=== PATIENT | female | born 1985 | race African-American/Black ===

== ENCOUNTER 2020-03-23 08:01 | Outpatient (CLI) | payer BC, SELFPAY ==
--- NOTE | ~2020-03-23 | US_ITS ---
EXAMINATION: US OB <= 14 weeks fetus DATE: 03/23/2020 08:30 INDICATION: First trimester dating TECHNIQUE: Real-time pelvic transabdominal and transvaginal ultrasound was performed. COMPARISON: None. FINDINGS: The uterus measures 10.8 x 7.7 x 6.6 cm. There is an intrauterine gestational sac. A yolk sac is identified. heart motion is identified measuring 178 beats per minute (bpm) by M-mode Do ppler. The crown rump length measures 4.1 cm , which correlates with an estimated gestational a ge of 11 weeks and 0 day(s) (+/-) 7 day(s). The ovaries are not visualized however no adnexal abnormality is seen. There is no free fluid in the pelvis. IMPRESSION: 1. Live intrauterine with an estimated gestational age of 11 weeks and 0 day(s) (+/-) 7 day (s) and an estimated delivery date of 10/12/2020. Reviewed, dictated and finalized at location A. EKEEPING/LAUNDRY IMPRESSION: 1. Live intrauterine with an estimated gestational age of 11 weeks an d 0 day(s) (+/-) 7 day(s) and an estimated delivery date of 10/12/2020.
== END 2020-03-23 08:02 | disposition home or self-care (01) ==
LOC: ANHIMG 08:05
PROVIDERS: Visit Provider Obstetrics & Gynecology
DX: Z34.91 Encounter for supervision of normal pregnancy, unspecified, first trimester (principal); Z3A.11 11 weeks gestation of pregnancy
CPT/HCPCS: 76801

== ENCOUNTER 2020-04-18 13:28 | Outpatient (CLI) | payer BC, SELFPAY ==
--- NOTE | ~2020-04-18 | US_ITS ---
EXAMINATION: US OB >= 14 weeks Fetus DATE: 04/18/2020 14:10 INDICATION: Pelvic pain during second trimester TECHNIQUE: Real-time ultrasound of the pelvis was performed. COMPARISON: None. FINDINGS: There is a single living fetus in vertex presentation. The placenta is anterior. heart rate is 163 beats per minute (bpm). cardiac activity and movement are noted. The amniotic fluid index is subjectively normal. The following biometric data were obtained: Biparietal diameter (BPD): 2.6 cm; head circumference (HC): 9.9 cm; abdominal circumference (AC): 8.8 cm; femur length (FL): 1.4 cm. The head circumference to abdominal circumference ratio is greater than two standard deviations below the mean. These measurements are otherwise concordant. Estimated weight is 101 g +/- 15 g, which correlates with the 29th percentile when 10/12/2020 is used as estimated date of delivery. As single measurements, these parameters are each equal to the following estimated gestational ages w ith ranges of +/- 2 standard deviations: BPD: 14 weeks 5 days +/- 1 weeks 1 days. HC: 14 weeks 2 days +/- 1 weeks 1 days. AC: 15 weeks 0 days +/- 1 weeks 5 days. FL: 14 weeks 2 days +/- 1 weeks 3 days. estimated gestational age based solely on measurements from this exam is 14 weeks 4 days +/- 1 weeks 0 days. IMPRESSION: 1. Single living fetus in vertex presentation. 2. Estimated weight is 101 g +/- 15 g, which correlates with the 29th percentile when 10/12/2020 is used as estimated date of delivery. 3. No sonographic correlate for the patient's symptoms. 4. Head circumference to abdominal circumference ratio greater than two standard deviations below the mean. Reviewed, dictated and finalized at location A. SHINGLE ROOFER IMPRESSION: 1. Single living fetus in vertex presentation. 2. Estimated weight is 101 g +/- 15 g, which correlates with the 29th per centile when 10/12/2020 is used as estimated date of delivery. 3. No sonographic correlate for the patient's symptoms. 4. Head circumference to abdominal circumference ratio greater than two standar d deviations below the mean.
== END 2020-04-18 13:29 | disposition home or self-care (01) ==
PROVIDERS: Visit Provider Obstetrics & Gynecology
DX: O26.892 Other specified pregnancy related conditions, second trimester (principal); Z3A.14 14 weeks gestation of pregnancy
CPT/HCPCS: 76805

== ENCOUNTER 2020-05-30 11:12 | Outpatient (CLI) | payer BC, SELFPAY ==
--- NOTE | ~2020-05-30 | US_ITS ---
EXAMINATION: US OB /maternal detail DATE: 05/30/2020 12:07 INDICATION: Second trimester anatomic survey TECHNIQUE: Real-time ultrasound of the pelvis was performed. COMPARISON: None. FINDINGS: There is a single living fetus in vertex presentation. The placenta is posterior. heart rate is 155 beats per minute (bpm). cardiac activity and movement are noted. The amniotic fluid index is subjectively normal. The following anatomy was identified as normal: 4 chamber heart 3 vessel cord cord insertion kidneys urinary bladder stomach spine diaphragm ventricles cisterna magna cerebellum The following biometric data were obtained: Biparietal diameter (BPD): 5.0 cm; head circumference (HC): 18.4 cm; abdominal circumference (AC): 14 .5 cm; femur length (FL): 3.2 cm. The head circumference to abdominal circumference ratio is discordant. Estimated weight is 334 g +/- 50 g, which correlates with the 18th percentile when 10/12/2020 is used as estimated date of delivery. As single measurements, these parameters are each equal to the following estimated gestational ages w ith ranges of +/- 2 standard deviations: BPD: 21 weeks 1 days +/- 1 weeks 5 days. HC: 20 weeks 6 days +/- 1 weeks 3 days. AC: 19 weeks 6 days +/- 2 weeks 0 days. FL: 20 weeks 1 days +/- 1 weeks 6 days. estimated gestational age based solely on measurements from this exam is 20 weeks 4 days +/- 1 weeks 3 days. IMPRESSION: 1. Single living fetus in vertex presentation. 2. Estimated weight is 334 g +/- 50 g, which correlates with the 18th percentile when 10/12/2020 is used as estimated date of delivery. 3. Discordant head circumference to abdominal circumference ratio. Reviewed, dictated and finalized at location A. OYER RELATIONS REPRESENTATIVE IMPRESSION: 1. Single living fetus in vertex presentation. 2. Estimated weight is 334 g +/- 50 g, which correlates with the 18th per centile when 10/12/2020 is used as estimated date of delivery. 3. Discordant head circumference to abdominal circumference ratio.
== END 2020-05-30 11:13 | disposition home or self-care (01) ==
PROVIDERS: PCP Obstetrics & Gynecology; Visit Provider Obstetrics & Gynecology
DX: Z36.89 Encounter for other specified antenatal screening (principal)
CPT/HCPCS: 76805

== ENCOUNTER 2020-07-11 13:03 | Outpatient (RCR) | payer BC, SELFPAY ==
[2020-07-11] MEDS: RHO(D) IMMUNE GLOBULIN 300 MCG SYRINGE IM (18:42)
== END 2020-10-09 23:59 | disposition home or self-care (01) ==
LOC: ANHLAB 13:03
PROVIDERS: PCP Obstetrics & Gynecology; Visit Provider Obstetrics & Gynecology
DX: Z29.13 Encounter for prophylactic Rho(D) immune globulin (principal); O36.0990 Maternal care for other rhesus isoimmunization, unspecified trimester, not applicable or unspecified; Z3A.00 Weeks of gestation of pregnancy not specified
CPT/HCPCS: 36415; 85461; 90384; 96372; J2790

== ENCOUNTER 2020-08-07 11:09 | Outpatient (CLI) | payer BC, SELFPAY ==
--- NOTE | ~2020-08-07 | US_ITS ---
EXAMINATION: US OB follow up DATE: 08/07/2020 11:39 INDICATION: Routine care. TECHNIQUE: Real-time ultrasound of the pelvis was performed. COMPARISON: Ultrasound 05/30/2020, 04/18/2020, 03/23/2020 FINDINGS: There is a single living fetus in vertex presentation. The placenta is posterior. heart rate i s 155 beats per minute (bpm). The amniotic fluid index is 16.5 cm, which is normal. The following biometric data were obtained: Biparietal diameter (BPD): 7.9 cm; head circumference (HC): 28.1 cm; abdominal circumference (AC): 26 .3 cm; femur length (FL): 5.3 cm. These measurements are discordant with FL/BPD < 5th percentile. Estimated weight is 1463 g +/- 219 g, which correlates with 17th percentile when 10/12/20 is used as estimated date of delivery. As single measurements, these parameters are each equal to the following estimated gestational ages: BPD: 31 weeks 5 days. HC: 30 weeks 5 days. AC: 30 weeks 3 days. FL: 28 weeks 1 days. estimated gestational age based solely on measurements from this exam is 30 weeks 2 days +/- 2 weeks 1 days. IMPRESSION: 1. Single living fetus in vertex presentation. 2. Estimated weight is 1463 g +/- 219 g, which correlates with 17th percentile when 10/12/20 is used as estimated date of delivery. This date was set by ultrasound on 03/23/2020. 3. Discordant biometrics with low FL/BPD. Reviewed, dictated and finalized at location A. IMPRESSION: 1. Single living fetus in vertex presentation. 2. Estimated weight is 1463 g +/- 219 g, which correlates with 17th perc entile when 10/12/20 is used as estimated date of delivery. This date was set by ultrasound on 03/23/2020. 3. Discordant biometrics with low FL/BPD.
== END 2020-08-07 11:10 | disposition home or self-care (01) ==
PROVIDERS: Visit Provider Obstetrics & Gynecology
DX: Z34.93 Encounter for supervision of normal pregnancy, unspecified, third trimester (principal); Z3A.30 30 weeks gestation of pregnancy
CPT/HCPCS: 76816

== ENCOUNTER 2020-08-22 12:24 | Outpatient (CLI) | payer BC, SELFPAY ==
--- NOTE | ~2020-08-22 | US_ITS ---
US OB BPP wo non-stress DATE: 08/22/2020 13:11 INDICATION: growth restriction TECHNIQUE: Real-time imaging and Doppler analysis COMPARISON: 08/07/2020 obstetrical ultrasound FINDINGS: Live veloz intrauterine gestation, fetus in longitudinal lie, vertex presentation. Feta l heart rate 139 bpm Fundal placenta. Amniotic fluid pocket up to 3.6 cm is identified. Subjectively normal amount of amniotic fluid. BIOPHYSICAL PROFILE reported by manometer technician: breathin out of 2 movement: 2 out of 2 tone: 2 out of 2 Amniotic fluid pocket: 2 out of 2 Total score: 8 out of 8 IMPRESSION: Normal biophysical profile score of 8 out of 8 Reviewed, dictated and finalized at Location A. Reviewed, dictated and finalized at location A.
== END 2020-08-22 12:25 | disposition home or self-care (01) ==
PROVIDERS: Visit Provider Obstetrics & Gynecology
DX: Z36.9 Encounter for antenatal screening, unspecified (principal); Z3A.00 Weeks of gestation of pregnancy not specified
CPT/HCPCS: 76819

== ENCOUNTER 2020-10-02 10:33 | Outpatient (RCR) | payer BC, SELFPAY ==
[2020-08-22 14:25] VITALS: BP 98/60; PULSE 75
[2020-09-04 10:19] VITALS: BP 105/68; PULSE 85
[2020-09-11 13:11] VITALS: BP 101/66; PULSE 84
[2020-09-18 11:27] VITALS: BP 102/66; PULSE 88
[2020-09-25 11:41] VITALS: BP 95/60; PULSE 90
--- NOTE | ~2020-10-02 | US_ITS ---
EXAMINATION: US OB BPP wo non-stress EXAM DATE: 09/11/2020 13:01 INDICATION: Small for gestational age. 3rd trimester. TECHNIQUE: Pelvic obstetrical transabdominal sonogram was performed by a technologist. There are mu ltiple grayscale and Doppler images available for interpretation. Comparison is made to prior examina tion from 09/04/2020. FINDINGS: There is a single fetus identified in vertex presentation with a heart rate of 155 beats pe r minute. The placenta is located in the fundal position. There is no sonographic evidence of retrop lacental hemorrhage identified. BIOPHYSICAL PROFILE (performed by the technologist) breathing (30 sec sustained breathing in 30 minutes): 2 out of 2 movement (3 gross body movements in 30 minutes): 2 out of 2 tone (one episode of owpfqkg-usvqbryow-fvnqqqf limb movement): 2 out of 2 Amniotic fluid pocket (2 cm): 2 out of 2 Total score: 8 out of 8 IMPRESSION: 1. Single fetus with heart rate of 155 bpm. 2. Normal biophysical profile score of 8 out of 8. Reviewed, dictated and finalized at location B.
--- NOTE | ~2020-10-02 | US_ITS ---
EXAMINATION: US OB BPP wo non-stress DATE: 08/28/2020 08:48 INDICATION: Intrauterine growth restriction. TECHNIQUE: Real-time pelvic ultrasound was performed. The interpreting radiologist was not present fo r the study. COMPARISON: None. FINDINGS: There is a single living fetus in vertex presentation. The placenta is fundal. heart rate is 1 44 beats per minute (bpm). Biophysical profile performed by the technologist: breathing (30 sec sustained breathing in 30 minutes): 2 out of 2 movement (3 gross body movements in 30 minutes): 2 out of 2 tone (one episode of ovdiihs-zhumqsegv-fhydyrx limb movement): 2 out of 2 Amniotic fluid pocket (2 cm): 2 out of 2 Total score: 8 out of 8 IMPRESSION: 1. Single living fetus in vertex presentation with heart rate of 144 bpm. 2. Biophysical profile 8 out of 8. Reviewed, dictated and finalized at location A.
--- NOTE | ~2020-10-02 | US_ITS ---
EXAMINATION: US OB BPP wo non-stress DATE: 09/18/2020 10:54 INDICATION: Intrauterine growth restriction. Third trimester. TECHNIQUE: Real-time pelvic ultrasound was performed. COMPARISON: Ultrasound 09/11/2020 FINDINGS: There is a single living fetus in vertex presentation. The placenta is posterior, 4.9 cm from the ce rvix. heart rate is 125 beats per minute (bpm). Biophysical profile performed by the technologist: breathing (30 sec sustained breathing in 30 minutes): 2 out of 2 movement (3 gross body movements in 30 minutes): 2 out of 2 tone (one episode of kqsdyeh-vhyvkokwe-dhqgcee limb movement): 2 out of 2 Amniotic fluid pocket (2 cm): 2 out of 2 Total score: 8 out of 8 IMPRESSION: 1. Single living fetus in vertex presentation. 2. Biophysical profile 8 out of 8. Reviewed, dictated and finalized at location B.
--- NOTE | ~2020-10-02 | US_ITS ---
EXAMINATION: US OB follow up w BPP EXAM DATE: 09/25/2020 11:30 INDICATION: IUGR - EFW with BPP IUGR . 3rd trimester. TECHNIQUE: Pelvic obstetrical transabdominal sonogram was performed by a technologist. There are mu ltiple grayscale and Doppler images available for interpretation. Comparison is made to prior examina tion from 09/18/2020. FINDINGS: There is a single fetus identified in vertex presentation with a heart rate of 137 beats pe r minute. The placenta is located in the posterior fundal position. There is no sonographic evidence of retroplacental hemorrhage identified. BIOMETRIC DATA: Biparietal diameter (BPD): 9.0 cm --------------> 36 weeks 3 days. Head circumference (HC): 33.5 cm ---------------> 38 weeks 3 days. Abdominal circumference (AC): 32.9 cm ---------> 36 weeks 5 days. Femur length (FL): 7.2 cm ------------------------> 36 weeks 6 days. These measurements are concordant. HC/AC ratio is 1.02 (The 5th -- 95th percentile range is 0.92-1.05. Estimated weight is 3070 g +/- 460 g. This is the 42nd percentile when the currently reported clinical gestation age 37 weeks 4 days, clinical estimated date of delivery (ISAAC-OPE) 10/12/2020 is use d. estimated gestational age based on measurements from this exam is 37 weeks 1 day, with an es timated date of delivery (ISAAC-AUA) 10/15. BIOPHYSICAL PROFILE (performed by the technologist) breathing (30 sec sustained breathing in 30 minutes): 2 out of 2 movement (3 gross body movements in 30 minutes): 2 out of 2 tone (one episode of caxqlgq-ajikjnbru-zrmaazm limb movement): 2 out of 2 Amniotic fluid pocket (2 cm): 2 out of 2 Total score: 8 out of 8 IMPRESSION: 1. Single fetus with heart rate of 137 bpm. 2. Normal biophysical profile score of 8 out of 8. 3. Estimated weight 3070 g, 42nd percentile using current clinical gestational age 37 weeks 4 days. Reviewed, dictated and finalized at location A. IMPRESSION: 1. Single fetus with heart rate of 137 bpm. 2. Normal biophysical profile score of 8 out of 8. 3. Estimated weight 3070 g, 42nd percentile using current clinical gesta tional age 37 weeks 4 days.
--- NOTE | ~2020-10-02 | US_ITS ---
EXAMINATION: US OB BPP wo non-stress DATE: 09/04/2020 10:28 CDT INDICATION: IUGR TECHNIQUE: Real-time transabdominal obstetric ultrasound. FINDINGS: Comparison to 08/28/2020 There is a single living fetus in vertex presentation. The placenta is fundal without placenta previ a. cardiac activity and movement is noted with a heart rate of 135 beats per minute. Biophysical profile: breathin of 2 movement: 2 of 2 tone: 2 of 2 Amniotic flud pocket: 2 of 2 Total score: 8 of 8 IMPRESSION: 1. Single living intrauterine in vertex presentation. 2: Total biophysical profile score of 8/8. Reviewed, dictated and finalized at location B.
--- NOTE | ~2020-10-02 | US_ITS ---
EXAMINATION: US OB BPP wo non-stress DATE: 10/02/2020 11:54 INDICATION: Intrauterine growth retardation TECHNIQUE: Real-time pelvic ultrasound was performed. The interpreting radiologist was not present fo r the study. COMPARISON: None. FINDINGS: There is a single living fetus in vertex presentation. The placenta is posterior fundal. heart rate is 139 beats per minute (bpm). Biophysical profile performed by the technologist: breathing (30 sec sustained breathing in 30 minutes): 2 out of 2 movement (3 gross body movements in 30 minutes): 2 out of 2 tone (one episode of nzshtbb-ujgdcyipf-tmylzej limb movement): 2 out of 2 Amniotic fluid pocket (2 cm): 2 out of 2 Total score: 8 out of 8 IMPRESSION: 1. Single living fetus in vertex presentation with heart rate of 139 bpm. 2. Biophysical profile 8 out of 8. Reviewed, dictated and finalized at location A.
[2020-10-02 11:57] VITALS: BP 99/68; PULSE 84
== END 2020-10-08 07:41 | disposition home or self-care (01) ==
LOC: ANHOBOP 10:33
PROVIDERS: Visit Provider Obstetrics & Gynecology
DX: O36.5930 Maternal care for other known or suspected poor fetal growth, third trimester, not applicable or unspecified (principal); Z3A.32 32 weeks gestation of pregnancy; Z3A.33 33 weeks gestation of pregnancy; Z3A.34 34 weeks gestation of pregnancy; Z3A.35 35 weeks gestation of pregnancy; Z3A.36 36 weeks gestation of pregnancy; Z3A.37 37 weeks gestation of pregnancy; Z3A.38 38 weeks gestation of pregnancy
CPT/HCPCS: 59025; 76816; 76819

== ENCOUNTER 2020-10-05 06:35 | Inpatient (IN) | payer BC, SELFPAY ==
[2020-10-05] VITALS (89 sets, daily range): BP systolic 70–169; BP diastolic 31–147; PULSE 66–149; TEMP 36.4–36.9; O2SAT 95–100; BMI 30.9
--- NOTE | 2020-10-05 06:05 | PM.IMHP ---
H&P: HPI History of Present Illness Date/Time: 10/05/20 06:05 35yo primigravida female at 39weeks here for IOL. c/b growth restriction, HSV, GBS, HPV, and RhD negative. I explained her condition procedure risks involved including shoulder dystocia and hemorrhage and maternal or indications for delivery risk including but not limited to bleeding infection injury to bladder bowel baby DVT pneumonia wound infection endometritis UTI and the risk of anesthesia she understands all this accepts and agrees to proceed. Method of induction Cervidil followed by Pitocin if cervix favorable then may proceed to Pitocin Antibiotic prophylaxis for group B strep Chief Complaint: term , growth restriction, elective induction of labor, GBS positive Review of Systems Review of Systems: All systems reviewed & are unremarkable except as noted in HPI and below Constitutional: Constitutional: Reports no additional constitutional complaints Eyes: Eyes: Reports no additional eye complaints ENT: Reports system reviewed and no additional complaints, except as documented Cardiovascular: Cardiovascular: Reports no additional cardiovascular complaints Respiratory: Respiratory: Reports no additional respiratory complaints Gastrointestinal: Gastrointestinal: Reports no additional gastrointestinal complaints Genitourinary: Genitourinary: Reports no additional female genitourinary complaints Musculoskeletal: Musculoskeletal: Reports no additional musculoskeletal complaints Integumentary/Breasts: Skin/Breast: Reports system reviewed and no additional complaints, except as docu Neurologic: Reports system reviewed and no additional complaints, except as documented Psychiatric: Psychiatric: Reports no additional psychiatric complaints Endocrine: Endocrine: Reports no additional endocrine complaints Hematologic/Lymphatic: Hematologic/Lymphatic: Reports no additional hematologic/lymphatic complaints Allergic/Immunologic: Allergic/Immunologic: Reports no additional allergic/immunologic complaints [facility] Past Medical History Medical History (Updated 10/05/20 @ 06:28 by Eduard Banks MD) Anemia BV (bacterial vaginosis) Candidiasis of vagina FGR ( growth retardation) GBS (group B Streptococcus carrier), +RV culture, currently HPV (human papilloma virus) infection HSV (herpes simplex virus) infection Rh negative state in antepartum period Trichomonal vaginitis Family History Family History Other No pertinent family history Social History Social History (Updated 10/05/20 @ 06:40 by Eduard Banks MD) Smoking status: Never smoker Second hand tobacco smoke exposure: No Alcohol intake: never Substance use: never Substance use type: does not use Occupation/Education: unemployed Gender identity (if verbalized by the patient): Female Sexual Orientation (if Verbalized by the Patient): Straight or Heterosexual Spiritual care concerns: No Agree to blood products: Yes Meds Home Medications and Allergies Home Medications Medication Instructions Recorded Confirmed Type PNV cmb#95-ferrous fumarate-FA 1 tablet PO DAILY 09/04/20 09/18/20 History [] Allergies Allergy/AdvReac Type Severity Reaction Status Date / Time No Known Allergies Allergy Verified 08/28/20 08:21 Exam Const: General: cooperative, healthy appearing, comfortable, no acute distress, well developed, alert, awake and Physically active Nutritional Appearance: average body habitus Orientation/consciousness: patient oriented x3 Limitations: no limitations HENMT: Head: normal to inspection Eyes: General: appearance normal, both eyes and all related structures Neck: Neck: normal visual inspection and full ROM Chest: Chest palpation & inspection: normal inspection of the chest Breast/axilla inspection: normal
--- NOTE | 2020-10-05 06:15 | P.HPUP_ITS ---
History and Physical Update Update Date/Time: 10/05/20 06:15 History and Physical has been reviewed, including an updated exam of the patient. There are NO changes in the patient's condition. Risks, benefits, and alternatives have been discussed and questions answered. Patient agrees to proceed with procedure. 35yo primigravida female at 39weeks here for IOL. c/b growth restriction, HSV, GBS, HPV, and RhD negative. I explained her condition proc edure risks involved including shoulder dystocia and hemorrhage and maternal or indications for delivery risk including but not limited to bleeding infection injury to bladder bowel baby DVT pneumonia wound infection endometritis UTI and the risk of anesthesia she understands all this accepts and agrees to proceed. Method of induction Cervidil followed by Pitocin if cervix favorable then may proceed to Pitocin Antibiotic prophylaxis for group B strep
--- NOTE | 2020-10-05 06:16 | WPDOBADMIT ---
Obstetrics - Admit Note Admission Note: record reviewed. No pertinent additions to the history and/or any subsequent changes in the physical findings that are not consistent with the expected course of the were found. Additions to the history and/or subsequent changes in the physical findings follow. None. 35yo primigravida female at 39weeks here for IOL. c/b growth restriction, HSV, GBS, HPV, and RhD negative. I explained her condition procedure risks involved including shoulder dystocia and hemorrhage and maternal or indications for delivery risk including but not limited to bleeding infection injury to bladder bowel baby DVT pneumonia wound infection endometritis UTI and the risk of anesthesia she understands all this accepts and agrees to proceed. Method of induction Cervidil followed by Pitocin if cervix favorable then may proceed to Pitocin Antibiotic prophylaxis for group B strep
--- NOTE | 2020-10-05 06:35 | LDADM ---
This patient, Andres Leyva, was admitted to Labor/Delivery/Recovery 105 on 10/05/20 at 06:35. Plans for labor, pain management and were discussed with patient. Patient/family oriented to hospital policies and general routines including ID bracelet, bed and alarms, visiting hours, pain management, procedures, bathroom and other care routines, personal items, smoking policy, room service/diet and guest tray routines, security routines, and visiting hours. Patient/Family are encouraged to report perceived risks to care and to ask questions if they do not understand what they are told or what they should do. See OBIX for further documentation.
--- OUTSIDE RECORDS SUMMARY | 2020-10-05 06:40 | XMS_ITS | Encounter Summary ---
:1985 Author Care Team Providers Name Role Phone Eduard Banks MD [employer] [phone] Reason for Visit ob routine visit Assessment and Plan Assessment Note AGATA ElizabethS 1. Routine care weekly visits ? urinalysis, dipstick ? US, obstetric, biophysical profile + non-stress test - EFW 2. growth restriction weekly nst/bpp. 08/28, 09/11 WNL 3. RhD negative RhoGAM administered between 26 -28 week visit. Discussion Note: None recorded.Patient educational handouts: No information available. Plan of Care Reminders Provider Appointments None recorded. ? ? Lab Urinalysis, In-Of fice Order Dipstick 09/18/2020 Referral None recorded. ? ? Procedures None recorded. ? ? Surgeries None recorded. ? ? Imaging US, Obstetric, An derson Biophysical Profile + 09/18/2020 [facility] Non-stress Test Center Medications Name Start Date ? ? Calcium 600 with Vitamin D3 600 mg (1,500 mg)-400 unit capsule ? Take 1 capsule twice a day by oral route. Caltrate Gummy Bites 250 mg-10 mcg (400 unit) chewable tablet ?
--- OUTSIDE RECORDS SUMMARY | 2020-10-05 06:40 | XMS_ITS | Encounter Summary ---
:1985 Author Care Team Providers Name Role Phone Eduard Banks MD [employer] [phone] Reason for Visit ob routine visit Assessment and Plan Assessment Note FAUSTO Dukes 1. Routine care 35yo primigravida female at 38 w4d. c/b growth restriction, HSV, GBS, and RhD negative. IOL schedule d for 10/05. ? urinalysis, dipstick 2. growth restriction Receiving weekly bpp. Last 09/08 10/28 reassuring (8/8). IOL scheduled 10/05 3. RhD negative RhoGAM administered 07/11. 4. Group B Streptococcus carrier Intrapartum abx. 5. Genital herpes simplex Continue suppressive antiviral . ? genital herpes: care instr uctions Discussion Note: None recorded. Plan of Care Reminders Provider Appointments None ? ? recorded. Lab Urinalysis, In-Of fice Order Dipstick 10/02/2020 Referral None ? ? recorded. Procedures None ? ? recorded. Surgeries None ? ? recorded. Imaging None ? ? recorded. Medications Name Start Date ? ?
--- OUTSIDE RECORDS SUMMARY | 2020-10-05 06:40 | XMS_ITS ---
:1985 Author Care Team Providers Name Role Phone SAIGE CUELLAR MD Sanitation Laborer [phone] Allergies Code Code System Name Reaction Severity Status Onset NKDA ? Medications Name Status Start Date Stop Date ? ? acyclovir 800 mg tablet Completed ? 12/08/19 19 Take 1 tablet every day by oral route. Calcium 600 with Vitamin D3 600 mg (1,500 mg)-400 unit capsule A ctive ? Not available Take 1 capsule twice a day by oral route. calcium carbonate 600 mg (1,500 Completed ? 06/28/2017 mg)-vitamin D3 400 unit tablet calcium carbonate-vitamin D3 600 mg (1,500 mg)-800 unit tablet C ompleted ? 12/07/2018 Take 1 tablet twice a day by oral route. Caltrate Gummy Bites 250 mg-10 mcg (400 unit) chewable tablet Ac tive ? Not available Take 1 tablet twice a day by oral route. cephalexin 500 mg capsule Completed ? 2016 ciprofloxacin 500 mg tablet Completed ? 12/09 clindamycin 2 % vaginal cream Completed ? Condoms-Tacho Lubricated Completed ? 12/08/19 19 Take 1 device by miscell. route. COVID-19 test specimen collection Active ? Not available TEST DIRECTED ferrous gluconate 324 mg (38 mg iron) tablet Active ? Not available TAKE 1 TABLET BY MOUTH TWICE DAILY fluconazole 150 mg tablet Completed ? 2020 TAKE 1 TABLET BY MOUTH FOR 1 DOSE ibuprofen 600 mg tablet Unknown ? Not avai lable methylprednisolone 4 mg tablets in a Completed ? 12/30/2016 dose pack
--- OUTSIDE RECORDS SUMMARY | 2020-10-05 06:40 | XMS_ITS | Encounter Summary ---
:1985 Author Care Team Providers Name Role Phone Eduard Banks MD Net Application Architect [phone] Reason for Visit ob routine visit Assessment and Plan Assessment Note AGATA DukesS 1. Routine care weekly visits ? urinalysis, dipstick 2. growth restriction weekly nst/bpp. 08/28, 09/11 WNL; IOL 10/05/20 ? induction of labor (PROC) - fgr 3. Group B Streptococcus carrier 4. Genital herpes simplex ? genital herpes: care instr uctions 5. RhD negative RhoGAM administered between 26 -28 week visit. 6. Human papilloma virus infecti on 2014 pap test positive for HPV . 2018 pap test negative for HPV. Discussion Note 35yo primigravida female at 37w4d. c/b growth restriction, HSV, GBS, HPV, and RhD negative. Plan of Care Reminders Provider Appointments None ? ? recorded. Lab Urinalysis, In-Of fice Order Dipstick 09/25/2020 Referral None ? ? recorded. Procedures Induction of [facility] Labor (PROC) 09/25/2020 Surgeries None ? ? recorded.
--- OUTSIDE RECORDS SUMMARY | 2020-10-05 06:41 | XMS_ITS | Encounter Summary ---
:1985 Author Care Team Providers Name Role Phone Eduard Banks MD Material Control Supervisor [phone] Reason for Visit ob routine visit Assessment and Plan 1. Routine care weekly visits ? urinalysis, dipstick ? culture, vaginal/rectal, s treptococcus group B - PLEASE FAX RESULTS TO [facility] [phone] ? bacterial vaginosis + vagi nitis panel, vaginal - PLEASE FAX RESULTS TO [facility] [phone] ? HSV (1+2) DNA, qual, PCR, unspecified specimen - PLEASE FAX RESULTS TO [facility] AT [phone] 2. growth restriction weekly nst/bpp. 08/28, 09/11 WNL 3. Group B Streptococcus carrier 4. RhD negative RhoGAM administered between 26 -28 week visit. 5. Discussion Note: None recorded.Patient educational handouts: No information available. Plan of Care Reminders Provider Appointments None recorded. ? ? Lab Urinalysis, In-Of fice Order Dipstick 09/12/2020 ? Culture, [facility] Vaginal/rectal, 09/12/2020 Streptococcus Group B ? Bacterial [facility] Vaginosis + Vaginitis 09/12/2020 Panel, Vaginal ? HSV (1+2) DNA, [facility]
--- OUTSIDE RECORDS SUMMARY | 2020-10-05 06:41 | XMS_ITS | Encounter Summary ---
:1985 Author Care Team Providers Name Role Phone Eduard Banks MD Signals Analyst [phone] Reason for Visit ob routine visit Assessment and Plan 1. Routine care ? urinalysis, dipstick 2. growth restriction weekly nst/bpp 3. Human papilloma virus infecti on 2014 pap test positive for HPV . 2019 pap test negative for HPV. 4. Iron deficiency anemia pt taking FE ? iron deficiency anemia: ca re instructions 5. Group B Streptococcus carrier 6. Genital herpes simplex ? genital herpes: care instr uctions Discussion Note: None recorded. Plan of Care Reminders Provider Appointments None ? ? recorded. Lab Urinalysis, In-Of fice Order Dipstick 08/14/2020 Referral None ? ? recorded. Procedures None ? ? recorded. Surgeries None ? ? recorded. Imaging None ? ? recorded. Medications Name Start Date ? ? Calcium 600 with Vitamin D3 600 mg (1,500 mg)-400 unit capsule ? Take 1 capsule twice a day by oral route. Caltrate Gummy Bites 250 mg-10 mcg (400 unit) chewable tablet ?
--- OUTSIDE RECORDS SUMMARY | 2020-10-05 06:41 | XMS_ITS | Encounter Summary ---
:1985 Author Care Team Providers Name Role Phone Eduard Banks MD Time Motion Analyst [phone] Reason for Visit ob routine visit Assessment and Plan Assessment Note FAUSTO Miranda 1. Routine care ? Boostrix Tdap 2.5 Lf unit- 8 mcg-5 Lf/0.5 mL intramuscular syringe ? counting your baby's kicks : care instructions ? kick counts ? CBC - In addition to our o ffice, please fax results to [facility] [place] at [phone] ? treponema pallidum screen, serum, reflex confirmation - In addition to our office, please fax results to [facility] at [phone] ? HBsAg (hepatitis B surface Ag), EIA, serum - In addition to our office, please fax results to [facility] at [phone] ? HIV 1+2 AB + HIV 1 p24 Ag, qualitative immunoassay, serum - In addition to our office, please fax results to [facility] [place] at [phone] ? CBC ? unlisted lab - HIV-1/HIV-2 Ab screen ? HBsAg (hepatitis B surface Ag), serum ? Boostrix Tdap 2.5 Lf unit- 8 mcg-5 Lf/0.5 mL intramuscular syringe ? US, obstetric, 3rd trimest er ? counting your baby's kicks : care instructions ? kick counts 2. Genital herpes simplex ? genital herpes: care instr uctions 3. Group B
--- OUTSIDE RECORDS SUMMARY | 2020-10-05 06:41 | XMS_ITS | Encounter Summary ---
:1985 Author Care Team Providers Name Role Phone Eduard Banks MD Distribution Center Manager [phone] Reason for Visit ob routine visit Assessment and Plan 1. Routine care ? urinalysis, dipstick 2. growth restriction weekly nst/bpp. 08/28 WNL 3. Genital herpes simplex ? genital herpes: care instr uctions 4. Group B Streptococcus carrier 5. Human papilloma virus infecti on 2014 pap test positive for HPV . 2018 pap test negative for HPV. 6. Iron deficiency anemia pt taking FE ? iron deficiency anemia: ca re instructions Discussion Note: None recorded. Plan of Care Reminders Provider Appointments None ? ? recorded. Lab Urinalysis, In-Of fice Order Dipstick 08/28/2020 Referral None ? ? recorded. Procedures None ? ? recorded. Surgeries None ? ? recorded. Imaging None ? ? recorded. Medications Name Start Date ? ? Calcium 600 with Vitamin D3 600 mg (1,500 mg)-400 unit capsule ? Take 1 capsule twice a day by oral route. Caltrate Gummy Bites 250 mg-10 mcg (400 unit) chewable tabl
--- NOTE | 2020-10-05 06:52 | PC.NURSE ---
Dr. Banks verified negative GBS results for this . Dr. Banks will fax GBS results.
[2020-10-05 07:19] LABS: Basophils Percent Auto 0.3 % (0.2-1.2); Hematocrit 44.1 % (37.0-47.0); Hemoglobin 14.8 g/dL (12.0-15.0); Immature Granulocyte Absolute 0.09 K/mm3 (0.00-0.031); Immature Granulocyte Percent A 0.8 % (0-0.5); Immature Platelet Fraction Pct 6.1 % (0.9-11.2); Lymphocytes Absolute Auto 1.11 K/mm3 (0.9-3.2); Lymphocytes Percent Auto 10.5 % (18.3-44.2); Mean Corpuscular HGB Conc 33.6 g/dl (32-36); Mean Corpuscular Hemoglobin 29.2 pg (26-34); Mean Platelet Volume 10.9 fl (7.4-10.4); Monocytes Absolute Auto 0.7 K/mm3 (0.1-0.6); Monocytes Percent Auto 6.7 % (2.6-8.5); Neutrophils Absolute Auto 8.7 K/mm3 (1.3-6.7); Neutrophils Percent Auto 81.7 % (45.5-73.1); Platelet Count Result 147 k/mm3 (150-375); Red Blood Count 5.07 M/mm3 (4.2-5.4); Red Cell Distribution Width 13.9 % (11.5-14.5); White Blood Count 10.6 K/mm3 (4.5-10.0)
[2020-10-05] MEDS: DINOPROSTONE 10 MG VAG INSERT VAGINAL (07:33)
[2020-10-05 08:15] LABS: HIV 1/2 Ab P24 Ag Result Negative (Negative)
--- NOTE | 2020-10-05 18:40 | PM.OBPNLAB ---
Pain Control Date/time seen: 10/05/20 18:40 Pain control: tolerating well Pelvic Exam Amniotic membrane status: Intact Contractions Monitor mode: External Contraction frequency: 5 Contraction pattern: Irregular Contraction phase: Resting Contraction intensity: Mild Status status: Category l Assessment and Plan Assessment: induction ongoing Plan: continuous present management
[2020-10-05] MEDS: fentaNYL CITRATE INJ (*CRX) 100 MCG/2 ML VIAL 50 MCG IV PUSH (19:02)
[2020-10-05] MEDS: LACTATED RINGERS 1,000 ML 125 ML IV CONT ×3 (19:02→21:59)
--- NOTE | 2020-10-05 20:14 | WPDANESEPPF ---
Anes - Initial Pre Proc Eval Procedure: labor epidural Date/Time: 10/05/20 20:14 Surgeon: Eduard Banks MD Pre Op Diagnosis: labor pain Pre Op Diagnosis: Induction of Labor Patient Data Age: 35 Gender: F Height: 1.52 m Weight: 72 kg Last Vital Signs Temp 36.7 C 10/05/20 18:01 Pulse 76 10/05/20 20:13 BP 101/67 10/05/20 20:13 Pulse Ox 100 10/05/20 20:13 Allergies Allergy/AdvReac Type Severity Reaction Status Date / Time No Known Allergies Allergy Verified 08/28/20 08:21 Home Medications Medication Instructions Recorded Confirmed Type PNV cmb#95-ferrous fumarate-FA 1 tablet PO DAILY 09/04/20 10/05/20 History [] Laboratory Tests 10/05/20 10/05/20 10/05/20 07:07 07:07 07:07 WBC 10.6 K/mm3 H K/mm3 (4.5-10.0) RBC 5.07 M/mm3 M/mm3 (4.2-5.4) Hgb 14.8 g/dL g/dL (12.0-15.0) Hct 44.1 % % (37.0-47.0) MCV 87.0 fl fl (80-100) MCH 29.2 pg pg (26-34) MCHC 33.6 g/dl g/dl (32-36) RDW 13.9 % % (11.5-14.5) Plt Count 147 k/mm3 L k/mm3 (150-375) MPV 10.9 fl H fl (7.4-10.4) Immature Gran % (Auto) 0.8 % H % (0-0.5) Neut % (Auto) 81.7 % H % (45.5-73.1) Lymph % (Auto) 10.5 % L % (18.3-44.2) [place] % (Auto) 6.7 % % (2.6-8.5) Eos % (Auto) 0.0 % % (0-4.4) Baso % (Auto) 0.3 % % (0.2-1.2) Lymph # (Auto) 1.11 K/mm3 K/mm3 (0.9-3.2) [place] # (Auto) 0.7 K/mm3 H K/mm3 (0.1-0.6) Eos # (Auto) 0.0 K/mm3 K/mm3 (0-0.3) Baso # (Auto) 0.0 K/mm3 K/mm3 (0.0-0.1) Abs Immat Gran (auto) 0.09 K/mm3 H K/mm3 (0.00-0.031) Absolute Neuts (auto) 8.7 K/mm3 H K/mm3 (1.3-6.7) Absolute Nucleated RBC 0.0 K/mm3 K/mm3 (0.0-0.012) Nucleated RBC % 0.0 % % (0.0-0.2) % Immature Plt Fraction 6.1 % % (0.9-11.2) RPR Pending HIV 1&2 Ab/P24 Ag 4thGn Negative (Negative) Blood Type Antibody Screen 10/05/20 07:07 WBC RBC Hgb Hct MCV MCH MCHC RDW Plt Count MPV Immature Gran % (Auto) Neut % (Auto) Lymph % (Auto) [place] % (Auto) Eos % (Auto) Baso % (Auto) Lymph # (Auto) [place] # (Auto) Eos # (Auto) Baso # (Auto) Abs Immat Gran (auto) Absolute Neuts (auto) Absolute Nucleated RBC Nucleated RBC % % Immature Plt Fraction RPR HIV 1&2 Ab/P24 Ag 4thGn Blood Type B Negative Antibody Screen Negative Patient hx anesthesia problems: none Family hx anesthesia problems: none PMFSH Past Medical History Medical History (Updated 10/05/20 @ 06:28 by Eduard Banks MD) Anemia BV (bacterial vaginosis) Candidiasis of vagina FGR ( growth retardation) GBS (group B Streptococcus carrier), +RV culture, currently HPV (human papilloma virus) infection HSV (herpes simplex virus) infection Rh negative state in antepartum period Trichomonal vaginitis Family History Family History Other No pertinent family history Social History Social History (Updated 10/05/20 @ 06:40 by Eduard Banks MD) Smoking status: Never smoker Second hand tobacco smoke exposure: No Alcohol intake: never Substance use: never Substance use type: does not use Occupation/Education: unemployed Gender identity (if verbalized by the patient): Female Sexual Orientation (if Verbalized by the Patient): Straight or Heterosexual Spiritual care concerns: No Agree to blood products: Yes Soto - Rosita Final PreProcedure Day of Procedure 10/05/20 20:14 Patient weight: obese ASA classification: II Anesthesia type and monitoring: regional epidural Informed C
--- NOTE | 2020-10-05 20:58 | PM.OBPNLAB ---
Pain Control Date/time seen: 10/05/20 20:58 Pain control: tolerating well and epidural Pelvic Exam Dilation (cm): 1 Effacement (%): 90 station: -4 Amniotic membrane status: Ruptured (AROM iupc placed) Contractions Monitor mode: Internal Contraction frequency: 5 Contraction pattern: Irregular Contraction phase: Resting Contraction intensity: Mild Status status: Category l Assessment and Plan Pitocin rate (mU/min): 2 Assessment: induction ongoing Plan: continuous present management Comments: epidural
[2020-10-05] MEDS: OXYTOCIN 30 UNITS/NS 500 ML 30 UNITS/500 ML BAG IV CONT (21:10)
--- NOTE | 2020-10-05 22:36 | PM.OBPNLAB ---
Pain Control Date/time seen: 10/05/20 22:36 Pain control: tolerating well and epidural Pelvic Exam Dilation (cm): 3 Effacement (%): 90 station: -3 Amniotic membrane status: Ruptured (AROM iupc placed) Contractions Monitor mode: Internal Contraction frequency: 5 Contraction pattern: Irregular Contraction phase: Resting Contraction intensity: Mild Status status: Category l Assessment and Plan Assessment: induction ongoing Plan: continuous present management
[2020-10-06] VITALS (96 sets, daily range): BP systolic 71–149; BP diastolic 34–119; PULSE 67–159; RESP 15–18; TEMP 36.4–37.1; O2SAT 96–100
[2020-10-06] MEDS: LACTATED RINGERS 1,000 ML 125 ML IV CONT (05:06)
--- NOTE | 2020-10-06 06:27 | PM.OBPNLAB ---
Pain Control Date/time seen: 10/06/20 06:27 Pain control: tolerating well and epidural Pelvic Exam Dilation (cm): 6 Effacement (%): 90 station: -3 Amniotic membrane status: Ruptured (AROM iupc placed) Contractions Monitor mode: Internal Contraction frequency: 2 Contraction pattern: Regular Contraction phase: Contraction Contraction intensity: Strong/Firm Status status: Category l Assessment and Plan Assessment: active labor Plan: continuous present management
--- NOTE | 2020-10-06 10:55 | PM.OBPNLAB ---
Pain Control Date/time seen: 10/06/20 10:25 Pain control: tolerating well and epidural Pelvic Exam Dilation (cm): 9 Effacement (%): 90 station: 0 Amniotic membrane status: Ruptured (AROM iupc placed) Contractions Monitor mode: Internal Contraction frequency: 2 Contraction pattern: Regular Contraction phase: Contraction Contraction intensity: Strong/Firm Status status: Category l Assessment and Plan Pitocin rate (mU/min): 14 Assessment: active labor Plan: continuous present management
--- NOTE | 2020-10-06 11:22 | PM.OBPNLAB ---
Pain Control Date/time seen: 10/06/20 11:22 Pelvic Exam Dilation (cm): 10 Effacement (%): 100 station: +3 Amniotic membrane status: Ruptured (AROM iupc placed) Contractions Monitor mode: Internal Contraction frequency: 2 Contraction pattern: Regular Contraction phase: Contraction Contraction intensity: Strong/Firm Status status: Category l Assessment and Plan Pitocin rate (mU/min): 14 Assessment: active labor and other (complete stage 1) Plan: continuous present management Comments: vag del soon
[2020-10-06] MEDS: CARBOPROST TROMETHAMINE 250 MCG/ML AMPUL IM (11:53)
[2020-10-06] MEDS: METHYLERGONOVINE MALEATE 0.2 MG/ML VIAL IM (12:02)
--- NOTE | 2020-10-06 12:06 | P.PCNOB_ITS ---
OB - Delivery Note Procedure Delivery date: 10/06/20 Procedure: Normal spontaneous vertex vaginal delivery a viable male infant and placenta Repair of superficial perineal laceration events: Labor Induction Induction method: per pitocin protocol and per cervidil protocol Delivery augmentation: rupture of membranes Delivery monitor: external FHT and internal uterine Route of delivery: Episiotomy description: None Laceration Description: Perineal - 1st Degree Delivery repair: chromic Specimen: Yes (Placenta, cord blood, cord blood gases) Quantitative Blood Loss (ml): 400 Anesthesia type: Epidural Disposition: floor Complications: uterine atony controlled with Hemabate and Methergine as well as oxytocin Narrative: Normal 2nd stage of labor with spontaneous vertex vaginal delivery a viable male over an intact perineum anterior shoulder delivered without difficulty was delivered and placed onto the maternal abdomen after which the cord was clamped and cut. Baby was handed to the nursery nurse in attendance spontaneous respiration and cry with stimulation bulb suction skin to skin given scores 9 and 9 at 1 and 5 minutes weighing 6 lb 12 oz 20 in long baby taken to the nursery stable condition. Cord gases were obtained cord blood and then the placenta was delivered intact with a three- vessel cord the uterus contracted with Pitocin given intravenously. Superficial perineal laceration was then repaired with 2 chromic suture interrupted fashion. Blood clots removed from the intrauterine cavity uterine atony controlled with Pitocin IV Hemabate and Methergine as well as grasping of the cervix with a ring forceps and uterine sponge removal of clots from the uterine fundus. Cervix vagina were checked no sponges were the vagina the sphincters intact normal flow post delivery. Mom delivered in the labor room 105 and recovered in the same [place] Baby Date of : 10/06/20 Time of : 11:41 Weeks of gestation at delivery: 39 gender: Male (IVORY) Weight (pounds): 6 Weight (ounces): 12 presentation: vertex position: Left Occiput Anterior Placenta delivery description: Spontaneous and Normal Configuration cord vessel description: 3 Vessels and Nuchal Cord score one minute: 9 score five minutes: 9 Narrative: Nuchal cord x1 reduced on the perineum normal transition to the nursery stable condition normal exam
--- NOTE | 2020-10-06 12:21 | PM.OBDSVD ---
DS: Admitting Diagnosis Admitting Diagnosis Admitting Diagnosis: 1) Term : Code(s): Z34.90 - Encounter for supervision of normal , unspecified, unspecified trimester Status: Acute (2) FGR ( growth retardation): Status: Acute (3) GBS (group B Streptococcus carrier), +RV culture, currently : Code(s): O99.820 - Streptococcus B carrier state complicating Status: Acute (4) Rh negative state in antepartum period: Code(s): O26.899 - Other specified related conditions, unspecified trimester; Z67.91 - Unspecified blood type, Rh negative Status: Acute (5) Elective induction of labor planned: Status: Acute DS: Discharge Diagnosis Discharge Diagnosis (1) Term delivered: Code(s): O80 - Encounter for full-term uncomplicated delivery Status: Acute (2) Elective induction of labor planned: Status: Acute (3) Anemia: Code(s): D64.9 - Anemia, unspecified Status: Acute (4) Rh negative state in antepartum period: Code(s): O26.899 - Other specified related conditions, unspecified trimester; Z67.91 - Unspecified blood type, Rh negative Status: Acute (5) GBS (group B Streptococcus carrier), +RV culture, currently : Code(s): O99.820 - Streptococcus B carrier state complicating Status: Acute (6) FGR ( growth retardation): Status: Acute OB - DS: Summary Hospital Course Time spent discussing smoking cessation with patient: 3 to 10 minutes OB Procedures : NST and Ultrasound OB Procedures Intrapartum: Spontaneous Vag Delivery and GBS prophylaxis OB Procedures: : None, Antibiotics and RHo (D) lg Peripartum Data Infant Delivery Method: Natural Vaginal Laceration Description: Perineal - 1st Degree Episiotomy description: None Procedures: Normal spontaneous vertex vaginal delivery a viable male infant and placenta Repair of superficial perineal laceration complications: uterine atony (Resolved with Pitocin, Hemabate, Methergine) 1: Gender: Male (IVORY) Disposition of : home Status at Discharge Functional status at discharge: independent ambulation Overall status at discharge: patient is back to baseline Time Spent with Patient Time attestation: Total time spent providing and/or coordinating discharge services: Time spent: Less than 30 minutes Exam Const: General: cooperative, healthy appearing, comfortable, no acute distress, well developed, alert, awake and Physically active Nutritional Appearance: average body habitus and well nourished Orientation/consciousness: patient oriented x3 Limitations: no limitations HENMT: Head: normal to inspection Eyes: General: appearance normal, both eyes and all related structures Neck: Neck: normal visual inspection Chest: Chest palpation & inspection: normal inspection of the chest Resp: Effort & Inspection: normal respiratory effort Auscultation: clear to auscultation bilaterally Cardio: Rate: regular rate Rhythm: regular rhythm GI: Inspection: normal to inspection GI Palp: Yes Soft to palpation Auscultation: normal bowel sounds : External Female Exam: normal external appearance Bimanual exam- vagina & uterus: non-tender Back/Spine/Pelvis: Back: no CVA tenderness Skin: General skin exam: normal color Neuro: General: patient oriented x3, gait normal, tone normal, moves all extremities and Normal light touch and pain sensation Extrem: General: normal to inspection and full ROM Psych: Appearance: grossly normal Mental Status: mental status grossly normal Speech and movement: Normal speech and movement present Affect: normal affect Attitude: cooperative Thought process: Normal thought process present Thought content: Yes Normal thought content present Insight: Good insight present (Psych) Judgement: Good judgement present (Psych) D
[2020-10-06] MEDS: OXYTOCIN 30 UNITS/NS 500 ML 30 UNITS/500 ML BAG 125 UNITS IV CONT (12:22)
[2020-10-06] MEDS: DIPHENOXYLATE/ATROPINE (*CRX) 2.5 MG TABLET 2 TABLET PO (12:42)
[2020-10-06] MEDS: IBUPROFEN 600 MG TABLET PO ×2 (12:56→17:54)
[2020-10-06] MEDS: HYDROcodone/acetaminophen (*CRX) 10-325 MG TABLET 1 TAB PO (13:29)
--- NOTE | 2020-10-06 14:30 | OBPPTRN ---
Patient transferred to post room # 286 via wheelchair. Support person present. Oriented to unit, room, information board, rooming in, admission packet and security measures. Patient verbalizes understanding of such care. PT received education and instruction per one to one discussion, mom baby care guide and demonstration. PT and her mother both recipients of instructions and education. NO barriers to learning identified. Welcome packet not reviewed at this time. PT extremely tired.
[2020-10-06] MEDS: DOCUSATE SODIUM 100 MG CAPSULE PO (17:53)
[2020-10-07] MEDS: IBUPROFEN 600 MG TABLET PO ×3 (00:07→13:39)
[2020-10-07 03:22] VITALS: BP 102/54; PULSE 74; RESP 16; TEMP 36.8; O2SAT 100
[2020-10-07 04:20] LABS: Hematocrit 31.6 % (37.0-47.0); Hemoglobin 10.5 g/dL (12.0-15.0)
[2020-10-07 07:35] VITALS: BP 91/58; PULSE 87; RESP 16; TEMP 36.7; O2SAT 96
[2020-10-07 08:02] LABS: Rapid Plasma Reagin Non-Reactive (NonReactive)
--- NOTE | 2020-10-07 10:17 | WPDANLDPN2 ---
Anes-Prog Note L&D Date/Time: 10/07/20 10:17 Comfortable throughout: labor and delivery Neuraxial method: epidural Epidural/Spinal procedure site: clean & non-tender Neuro status: Neuro function grossly intact. Cardiovascular status: normal Respiratory status: normal Airway patency: baseline Mental status: baseline Post-Op hydration status: normal Vital Signs: Last Vital Signs Temp 36.7 C 10/07/20 07:35 Pulse 87 10/07/20 07:35 Resp 16 10/07/20 07:35 BP 91/58 L 10/07/20 07:35 Pulse Ox 96 10/07/20 07:35 Pain score (VAS): 0 I/O: Intake & Output 10/06/20 10/07/20 10/07/20 23:59 07:59 15:59 Intake Total 500 Balance 500 Post-procedural complaints: none Patient feedback: Patient satisfied with anesthetic care.
--- NOTE | 2020-10-07 10:24 | P.PNOB_ITS ---
OB - PN: Subj Subjective Date/time seen: 10/07/20 10:24 Patient comments: no complaints, pain well controlled, tolerating diet and flatus present [place] baby status: doing well and nursing well feeding status: breast and bottle feeding OB - PN: Obj Data Labs CBC & Chem 7: 10/07/20 03:26 Labs: Laboratory Results - last 24 hr 10/05/20 10/07/20 07:07 03:26 Hgb 10.5 L D Hct 31.6 L RPR Non-reactive OB - PN A/P Plan day: 1 Plan: routine care, discharge home and follow up 6 weeks Time Spent With Patient Time: Total time spent is greater than 50% in coordination of care (as documented) at patient's floor/unit and/or counseling patient: Time with patient: less than 15 minutes Review of Systems Review of Systems: All systems reviewed & are unremarkable except as noted in HPI and below Exam Const: General: comfortable, no acute distress, alert and awake Orientation/consciousness: patient oriented x3 Chest: Breast/axilla inspection: normal inspection of the breasts Resp: Effort & Inspection: normal respiratory effort Auscultation: clear to auscultation bilaterally Cardio: Rate: regular rate GI: GI Palp: Yes Soft to palpation Percussion: Yes normal to percussion Auscultation: normal bowel sounds : General: Yes bladder normal to inspection and Yes no CVA tenderness External Female Exam: normal external appearance Psych: Appearance: grossly normal Mental Status: mental status grossly normal Affect: normal affect Attitude: cooperative Thought content: Yes Normal thought content present Judgement: Good judgement present (Psych)
--- NOTE | 2020-10-07 12:35 | PC.NURSE ---
Consult with pt., mother put to breast for first feeding and had bottle fed since. Mother now wishes to put to breast before discharge. Reviewed infant feeding cues, frequencies, duration of feedings, feeding elimination flow sheet, and signs of adequate intake. Demonstrated stimulation techniques to wake infant for feeding. Assisted with infant to breast. Reviewed positioning/alignment in cross cradle, holding breast in ?U? hold and guided asymmetrical latch on. able to latch correctly. Infant nursed eagerly, with steady draws and frequent swallowing noted. Reviewed signs of a correct latch, effective nursing and suck swallow ratio. Suggested mother stimulate while feeding to increase stimulate, increase intake and to assist with maintaining deep latch. would slip to shallow latch, mother reports tenderness. Demonstrated how to adjust latch more deeply while feeding. Mother reports she can feel change in latch and has no tenderness. Nipple care reviewed of lanolin after feedings. Suggested mother continue to supplement after each until both are more comfortable with latch and effective . Mother has a follow up visit scheduled for 6-1. Suggested mother have follow up RN or call for LC to observe feeding at visit to evaluate discontinuing formula. Stressed the importance of waking to feed every 3-4 hours for feeding if supplementing and every 2-3 if . Mother has to be reminded to wake infant and feed as required and waking infant to feed if needed. Infant is currently meeting outcomes for weight, output, jaundice and feeding frequencies. Mother states she feels confident to continue putting to breast then supplementing until evaluation. Reviewed transition to breast milk, signs of adequate intake, and engorgement/relief. Instructed to call ICP if intake/output less than required. Reviewed regular medications mother is taking. Information provided per Kirstin. Reviewed community resources on the [facility] website and in the Mom/Baby guide. Information on outpatient services provided. Mother has no further questions at this time.
--- NOTE | 2020-10-07 16:35 | PC.NURSE ---
Patient viewed the discharge video Mother & Baby Care, The First Two Weeks . Patient was given the opportunity and encouraged to ask questions. Patient verbalized understanding of information shared and has been given the mother/baby guide for home reference.
[2020-10-07 19:10] VITALS: BP 105/64; PULSE 85; RESP 18; TEMP 36.9; O2SAT 100
[2020-10-08 08:20] VITALS: BP 110/70; PULSE 84; RESP 18; TEMP 37
[2020-10-08] MEDS: IBUPROFEN 600 MG TABLET PO (08:33)
== END 2020-10-08 11:32 | disposition home or self-care (01) | DRG 806 ==
LOC: ANHLDR 10-06 12:32 → ANHOB2 10-06 14:41
PROVIDERS: Admitting Provider Obstetrics & Gynecology; Visit Provider Obstetrics & Gynecology
DX: O99.824 Streptococcus B carrier state complicating childbirth (principal); O36.0930 Maternal care for other rhesus isoimmunization, third trimester, not applicable or unspecified; Z37.0 Single live birth; O36.5930 Maternal care for other known or suspected poor fetal growth, third trimester, not applicable or unspecified; O70.0 First degree perineal laceration during delivery; O69.81X0 Labor and delivery complicated by cord around neck, without compression, not applicable or unspecified; O76 Abnormality in fetal heart rate and rhythm complicating labor and delivery; Z3A.39 39 weeks gestation of pregnancy
CPT/HCPCS: 36415; 85014; 85018; 85025; 85055; 86592; 86703; 86850; 86900; 86901; 88307; A9270; G0432; J2210; J2590; J2795; J3010; J7120